=== PATIENT | female | born 1995 | race Caucasian/White ===

== ENCOUNTER 2017-04-01 19:39 | Emergency (ER) | payer BC ==
--- NOTE | 2017-04-01 19:45 | EDPHY ---
H & P HPI/ROS: CHIEF COMPLAINT: Intoxication HISTORY OF PRESENT ILLNESS: The patient is a 22-year-old female who is brought in for intoxication. She was at a [employer] and passed out outside. Someone at the [employer] called 911 and told them that she had had a cardiac arrest. When police, fire and paramedics arrived they all verify that she had a pulse, normal blood pressure and vital signs. Witnesses admit to large amount of alcohol no co-ingestants. No medical history. REVIEW OF SYSTEMS: Unable to obtain secondary to condition Physical Exam General Appearance: WD/WN, no apparent distress, vomite on clothing, obtunded ( But arousable with painful stimulation) EENT: PERRL/EOMI, normal ENT inspection, TMs normal, pharynx normal Neck: non-tender, full range of motion, supple, normal inspection Respiratory: chest non-tender, lungs clear, normal breath sounds Cardiac/Chest: normal peripheral pulses, regular rate, rhythm, P Peripheral Pulses: 2+: carotid (R), carotid (L), femoral (R), femoral (L), dorsalis-pedis (R), dorsalis-pedis (L) Abdomen: normal bowel sounds, non-tender, soft Extremities: normal range of motion, non-tender, normal inspection, normal capillary refill Neurological: calm, bread wrapping machine feeder II-XII NML as tested. No: alert (Somnolent) Appearance: appropriate appearance, appropriate insight, neat, denies illness Behavior/Eye Contact/Speech: cooperative, decreased rate of speech Thoughts/Hallucinations: normal thought pattern, no apparent hallucination Skin: normal color, warm/dry Source: Patient, EMS Exam Limitations: Intoxication - Medical/Surgical History Hx Asthma: No Hx Chronic Respiratory Disease: No Hx Diabetes: No Hx Cardiac Disease: No Hx Renal Disease: No Hx Cirrhosis: No Hx Alcoholism: No - Family History Significant Family History: No pertinent family hx - Social History Alcohol Use: Occasionally Drug Use: None Constitutional: Initial Vital Signs Temperature (C) 35.8 C L 04/01/17 19:53 Heart Rate 62 04/01/17 19:53 Respiratory Rate 14 04/01/17 19:53 Blood Pressure 129/91 H 04/01/17 19:53 O2 Sat (%) 94 04/01/17 19:53 O2 Delivery Mode Room Air Allergies/Adverse Reactions: No Known Allergies Allergy (Unverified 04/01/17 20:05) Home Medications: Medication Instructions Recorded NK [No Known Home Meds] 04/01/17 Medical Decision Making ED Course/Re-evaluation: 11:10 p.m. the patient is ambulatory. She is alert and talkative. Parents are here to take her home. We discharged her to their care. Differential Diagnosis: Partial list of the Differential diagnosis considered include but were not limited to; intoxication, substance abuse and although unlikely based on the history and physical exam, I also considered , arrhythmia, infection, trauma. I discussed these differential diagnoses and the plan with the patient as well as the usual and expected course. The patient understands that the diagnosis is provisional and that in medicine we are not always correct and that further workup is often warranted. Usual and customary warnings were given. All of the patient's questions were answered. The patient was instructed to return to the emergency department should the symptoms at all worsen or return, otherwise to followup with the physician as we discussed. - Data Points Laboratory Results: 04/01/17 19:47 Ethyl Alcohol 284 mg/dL H mg/dL (0-10) Departure - Departure Disposition: Home, Routine, Self-Care Clinical Impression: Alcoholic intoxication Qualifiers: Complication of substance-induced condition: uncomplicated Qualified Code(s): F10.920 - Alcohol use, unspecified with intoxication, uncomplicated Condition: Fair Instructions: Alcohol Intoxication (ED) Referrals: Patient,NotPresent [Unknown] - As per Instructions [facility],. [Clinic] - As per Instructions
[2017-04-01 20:05] VITALS: O2SAT 94
[2017-04-01 20:21] LABS: ETHANOL SERUM 284 mg/dL (0-10)
[2017-04-01 23:19] VITALS: BP 122/68; PULSE 71; RESP 18; TEMP 97.5
== END 2017-04-01 23:18 | disposition home or self-care (01) ==
DX: F10.920 Alcohol use, unspecified with intoxication, uncomplicated (principal)
CPT/HCPCS: G0480